=== PATIENT | female | born 1930 | race Caucasian/White ===

== ENCOUNTER 2017-01-07 11:13 | Inpatient (IN) | payer OTHER ==
[~2017-01-07] VITALS: Ht 157.5 cm; Wt 104.0 kg
[~2017-01-07 11:13] MED LIST: ALPRAZOLAM0.25 M2 PO; AMLODIPINE-BEN1 EAC3 PO; AUGMENTIN875 MG PO; Ascorbic Acid,Ester- PO; COLACE100 MG PO; COUMADIN,JANTO2.5 MG PO; CRESTOR40 MG PO; Folvite PO; LEVOTHROID,SYN0.1 MG PO; LOTREL 5/101 CAPSULE PO; Ocean Nasal 0.65% NS; Oyst-Cal D, Oscal W/ PO; PERCOCET 5/31 TABLET PO; PLAVIX75 MG PO; PREDNISONE20 M1 PO; PROTONIX40 MG PO; Robitussin DM PO; SYNTHROID75 MCG PO; THERAGRAN1 TABLET PO; TOPROL XL50 MG PO; TYLENOL EXTRA500 MG PO; ULTRAM50 MG PO; VICODIN,LORT1 TABLET PO; Vicodin,Lortab 5/500 PO; ZETIA10 MG PO
[2017-01-07 12:19] LABS: HEMATOCRIT 32.9 % (36.0-46.0); MCH 28.5 PG (29.0-34.0); MCHC 32.8 G/DL (30.0-36.0); MCV 86.8 FL (83-99); MEAN PLAT.VOLUME 12.8 uM^3 (9.5-12.4); PLATELET COUNT 192 K/uL (156-360); RBC DIS.WIDTH-CV 14.5 % (11.8-14.6); RBC DIS.WIDTH-SD 46.1 % (39-53); RED BLOOD COUNT 3.79 M/uL (3.80-5.20); WHITE BLOOD COUNT 6.2 K/uL (4.1-10.2)
[2017-01-07 12:33] LABS: CHLORIDE 105 mEq/L (99-109); POTASSIUM 5.2 mEq/L (3.7-5.4); SODIUM 137 mEq/L (136-147)
[2017-01-07 12:34] LABS: GLUCOSE 103 mg/dL (70-99)
[2017-01-07 12:36] LABS: ANION GAP 17 MEQ/L (2-14)
[2017-01-07 12:38] LABS: GFR ESTIMATE (CALCULATED) 8 mL/min/
[2017-01-07 12:41] LABS: UREA NITROGEN (BUN) 119 mg/dL (9-23)
[2017-01-07 13:16] LABS: INTER. NORMALIZED RATIO 1.6; PROTHROMBIN TIME 17.7 SEC (10.2-12.9)
[2017-01-07 13:19] LABS: PTT 32.8 SEC (25-37)
[2017-01-07 13:20] LABS: MAGNESIUM 2.1 mg/dL (1.3-2.7)
[2017-01-07 13:24] LABS: TOTAL BILIRUBIN 0.4 mg/dL (0.0-1.0)
[2017-01-07 13:25] LABS: ALKALINE PHOSPHATASE 94 IU/L (3-129)
[2017-01-07 13:27] LABS: DIRECT BILIRUBIN 0.2 mg/dL (0.0-0.3)
[2017-01-07 13:28] LABS: LIPASE 40 U/L (1.0-51.0)
[2017-01-07 14:18] LABS: ADD MIUA? YES; BILIRUBIN NEGATIVE; BLOOD SMALL; COLOR YELLOW ((YELLOW)); GLUCOSE (STRIP) NEGATIVE; KETONES NEGATIVE; LEUKOCYTES LARGE; NITRITE NEGATIVE; PROTEIN (STRIP) 30; SPECIFIC GRAVITY 1.011 (1.000-1.030); UROBILINOGEN 0.2 MG/DL (0.2-1.0)
[2017-01-07 14:28] LABS: BACTERIA RARE /HPF; EPITHELIAL CELLS RARE /HPF; GRANULAR CASTS 0-5 /LPF; HYALINE CASTS 0-5 /LPF; MUCUS TRACE /LPF; RED BLOOD CELLS 0-5 /HPF (0-5); UCUL ADDED? YES; WHITE BLOOD CELLS 20-30 /HPF (0-5)
[2017-01-07] MEDS ORDERED: AZITHROMYCIN250 MG1 PO (16:20)
[2017-01-07] MEDS ORDERED: IPRATROPIUM BRO30 ML BOTH NARES (16:20)
[2017-01-07] MEDS ORDERED: VALIUM2 MG PO (16:21)
[2017-01-07] MEDS ORDERED: NITROSTAT0.4 MG SL (16:21)
[2017-01-07] MEDS ORDERED: AMLODIPINE-VAL1 EACH PO (16:21)
[2017-01-07] MEDS ORDERED: EPIPEN ADU0.3 MG/0.3 IM (16:22)
[2017-01-07] MEDS ORDERED: IMODIUM A-D2 M2 PO (16:22)
[2017-01-07] MEDS ORDERED: FUROSEMIDE20 MG PO (16:22)
[2017-01-07] MEDS ORDERED: ELIQUIS2.5 MG PO (16:22)
[2017-01-07 16:58] VITALS: BP 141/60
[2017-01-07 17:35] LABS: CREATINE KINASE 195 IU/L (1-294); IRON 72 MCG/DL (35-150)
[2017-01-07 20:35] VITALS: BP 121/58
[2017-01-08] VITALS (7 sets, daily range): BP systolic 124–162; BP diastolic 60–72
[2017-01-08 06:26] LABS: CARBON DIOXIDE (BICARBONATE) 23.1 MEQ/L (20-31)
[2017-01-08 06:30] LABS: HEMATOCRIT 25.9 % (36.0-46.0); MCH 28.1 PG (29.0-34.0); MCHC 32.8 G/DL (30.0-36.0); MCV 85.8 FL (83-99); MEAN PLAT.VOLUME 12.3 uM^3 (9.5-12.4); PLATELET COUNT 162 K/uL (156-360); RBC DIS.WIDTH-CV 14.3 % (11.8-14.6); RBC DIS.WIDTH-SD 45.1 % (39-53); WHITE BLOOD COUNT 4.9 K/uL (4.1-10.2)
[2017-01-08 06:36] LABS: RED BLOOD COUNT 3.02 M/uL (3.80-5.20)
[2017-01-08 07:14] LABS: ANION GAP 13 MEQ/L (2-14); CHLORIDE 107 MEQ/L (99-109); GLUCOSE 86 mg/dL (70-99); SAMPLE HEMOLYSIS CHECK 0; SAMPLE ICTERIC CHECK 0; SAMPLE LIPEMIA CHECK 0; SODIUM 140 MEQ/L (136-147); UREA NITROGEN (BUN) 94 mg/dL (9-23)
[2017-01-08 07:16] LABS: GFR ESTIMATE (CALCULATED) 11 mL/min/; POTASSIUM 3.8 MEQ/L (3.7-5.4)
[2017-01-08 08:03] LABS: INTACT PARATHYROID HORMONE 273 pg/mL (10-69)
[2017-01-08 08:20] LABS: URINE TOTAL PROTEIN 75 MG/DL (0-10)
[2017-01-08 08:26] LABS: UR CREATININE CONCENTRATION 86.2 MG/DL
[2017-01-09 06:17] LABS: EOSINOPHIL (%) 3.9 % (0-5); EOSINOPHIL COUNT 0.2 K/uL (0-0.3); HEMATOCRIT 27.9 % (36.0-46.0); IMMATURE GRANULOCYTE (%) 0.3 % (0.0-0.7); INSTRUMENT ABS NEUTROPHIL CT 4.1 K/uL; LYMPHOCYTE COUNT 1.3 K/uL (1.0-2.8); MCH 28.2 PG (29.0-34.0); MCHC 32.6 G/DL (30.0-36.0); MCV 86.4 FL (83-99); MEAN PLAT.VOLUME 12.7 uM^3 (9.5-12.4); MONOCYTE (%) 7.8 % (3-12); MONOCYTE COUNT 0.5 K/uL (0-0.8); NEUTROPHIL (%) 66.7 % (45-76); NEUTROPHIL COUNT 4.1 K/uL (1.8-6.4); PLATELET COUNT 175 K/uL (156-360); RBC DIS.WIDTH-CV 14.4 % (11.8-14.6); RBC DIS.WIDTH-SD 45.2 % (39-53); RED BLOOD COUNT 3.23 M/uL (3.80-5.20); WHITE BLOOD COUNT 6.1 K/uL (4.1-10.2)
[2017-01-09 06:52] LABS: ALKALINE PHOSPHATASE 72 IU/L (3-129); ANION GAP 12 MEQ/L (2-14); CHLORIDE 107 MEQ/L (99-109); GLUCOSE 96 mg/dL (70-99); SAMPLE HEMOLYSIS CHECK 0; SAMPLE ICTERIC CHECK 0; SAMPLE LIPEMIA CHECK 0; SODIUM 141 MEQ/L (136-147); TOTAL BILIRUBIN 0.5 MG/DL (0.0-1.0); UREA NITROGEN (BUN) 72 mg/dL (9-23)
[2017-01-09 06:55] LABS: GFR ESTIMATE (CALCULATED) 15 mL/min/
[2017-01-09 07:30] VITALS: BP 140/62
[2017-01-09 15:51] VITALS: BP 159/70; BP 165/72
[2017-01-09 23:17] VITALS: BP 146/97
[2017-01-10 05:51] LABS: EOSINOPHIL (%) 6.3 % (0-5); EOSINOPHIL COUNT 0.4 K/uL (0-0.3); HEMATOCRIT 26.2 % (36.0-46.0); IMMATURE GRANULOCYTE (%) 0.3 % (0.0-0.7); INSTRUMENT ABS NEUTROPHIL CT 3.7 K/uL; LYMPHOCYTE COUNT 1.1 K/uL (1.0-2.8); MCH 28.2 PG (29.0-34.0); MCHC 32.8 G/DL (30.0-36.0); MCV 85.9 FL (83-99); MEAN PLAT.VOLUME 12.3 uM^3 (9.5-12.4); MONOCYTE (%) 10.2 % (3-12); MONOCYTE COUNT 0.6 K/uL (0-0.8); NEUTROPHIL (%) 64.5 % (45-76); NEUTROPHIL COUNT 3.7 K/uL (1.8-6.4); PLATELET COUNT 158 K/uL (156-360); RBC DIS.WIDTH-CV 14.6 % (11.8-14.6); RBC DIS.WIDTH-SD 45.8 % (39-53); RED BLOOD COUNT 3.05 M/uL (3.80-5.20); WHITE BLOOD COUNT 5.8 K/uL (4.1-10.2)
[2017-01-10 06:55] LABS: ALKALINE PHOSPHATASE 63 IU/L (3-129); ANION GAP 13 MEQ/L (2-14); CHLORIDE 108 MEQ/L (99-109); GFR ESTIMATE (CALCULATED) 18 mL/min/; GLUCOSE 84 mg/dL (70-99); POTASSIUM 4.2 MEQ/L (3.7-5.4); SAMPLE HEMOLYSIS CHECK 0; SAMPLE ICTERIC CHECK 0; SAMPLE LIPEMIA CHECK 0; SODIUM 141 MEQ/L (136-147); TOTAL BILIRUBIN 0.4 MG/DL (0.0-1.0); UREA NITROGEN (BUN) 60 mg/dL (9-23)
[2017-01-10 08:50] VITALS: BP 157/70
[2017-01-10 16:16] VITALS: BP 155/70
[2017-01-11 06:15] LABS: EOSINOPHIL (%) 5.5 % (0-5); EOSINOPHIL COUNT 0.3 K/uL (0-0.3); HEMATOCRIT 27.4 % (36.0-46.0); IMMATURE GRANULOCYTE (%) 0.5 % (0.0-0.7); INSTRUMENT ABS NEUTROPHIL CT 3.4 K/uL; LYMPHOCYTE COUNT 1.4 K/uL (1.0-2.8); MCH 27.7 PG (29.0-34.0); MCHC 31.4 G/DL (30.0-36.0); MCV 88.1 FL (83-99); MEAN PLAT.VOLUME 12.4 uM^3 (9.5-12.4); MONOCYTE COUNT 0.5 K/uL (0-0.8); NEUTROPHIL (%) 60.6 % (45-76); NEUTROPHIL COUNT 3.4 K/uL (1.8-6.4); PLATELET COUNT 157 K/uL (156-360); RBC DIS.WIDTH-CV 14.5 % (11.8-14.6); RBC DIS.WIDTH-SD 45.9 % (39-53); RED BLOOD COUNT 3.11 M/uL (3.80-5.20); WHITE BLOOD COUNT 5.7 K/uL (4.1-10.2)
[2017-01-11 06:54] LABS: ALKALINE PHOSPHATASE 62 IU/L (3-129); ANION GAP 7 MEQ/L (2-14); CHLORIDE 109 MEQ/L (99-109); GFR ESTIMATE (CALCULATED) 20 mL/min/; GLUCOSE 73 mg/dL (70-99); POTASSIUM 4.9 MEQ/L (3.7-5.4); SAMPLE HEMOLYSIS CHECK 0; SAMPLE ICTERIC CHECK 0; SAMPLE LIPEMIA CHECK 0; SODIUM 142 MEQ/L (136-147); UREA NITROGEN (BUN) 44 mg/dL (9-23)
[2017-01-11 06:55] LABS: TOTAL BILIRUBIN 0.5 MG/DL (0.0-1.0)
[2017-01-11 08:02] VITALS: BP 148/74
[2017-01-11 11:46] VITALS: BP 110/66
[2017-01-11] MEDS ORDERED: TAMSULOSIN HCL0.4 MG PO (14:30)
[2017-01-11] MEDS ORDERED: METRONIDAZOLE500 MG PO (14:30)
[2017-01-11] MEDS ORDERED: Tums,OsCal PO (14:31)
[2017-01-11] MEDS ORDERED: CALCITRIOL0.25 MCG PO (14:31)
[2017-01-11] MEDS ORDERED: AMLODIPINE BESYL5 MG PO (14:32)
[2017-01-11] MEDS ORDERED: ERGOCALCIF50000 UNIT PO (14:32)
== END 2017-01-11 15:41 | disposition home health service (06) | DRG 683 ==
LOC: EME 11:13 → 5EAST 13:40 → EDOF 13:40 → ENRESERV 13:42 → CANRESERV 13:42 → ENRESERV 15:03 → 5EAST 16:30
PROVIDERS: Hospitalist; Internal Medicine
DX: N17.9 Acute kidney failure, unspecified (principal); N39.0 Urinary tract infection, site not specified; R04.0 Epistaxis; E87.2 Acidosis; D63.1 Anemia in chronic kidney disease; I13.0 Hypertensive heart and chronic kidney disease with heart failure and stage 1 through stage 4 chronic kidney disease, or unspecified chronic kidney disease; N18.4 Chronic kidney disease, stage 4 (severe); I50.9 Heart failure, unspecified; E87.5 Hyperkalemia; E86.0 Dehydration; E55.9 Vitamin D deficiency, unspecified; I48.0 Paroxysmal atrial fibrillation; N25.81 Secondary hyperparathyroidism of renal origin; Z68.41 Body mass index [BMI] 40.0-44.9, adult; E66.01 Morbid (severe) obesity due to excess calories; I25.2 Old myocardial infarction; K21.9 Gastro-esophageal reflux disease without esophagitis; E78.5 Hyperlipidemia, unspecified; E03.9 Hypothyroidism, unspecified; G43.909 Migraine, unspecified, not intractable, without status migrainosus; K58.0 Irritable bowel syndrome with diarrhea; R32 Unspecified urinary incontinence; F32.9 Major depressive disorder, single episode, unspecified; H91.90 Unspecified hearing loss, unspecified ear; F41.9 Anxiety disorder, unspecified; Z79.01 Long term (current) use of anticoagulants; Z87.891 Personal history of nicotine dependence; Z96.652 Presence of left artificial knee joint; R63.0 Anorexia; R80.9 Proteinuria, unspecified; I44.0 Atrioventricular block, first degree
CPT/HCPCS: 71010; 74176; 76770; 80048; 80053; 80076; 81003; 82306; 82330; 82436; 82550; 82570; 82607; 82746; 82803; 83540; 83690; 83735; 83970; 84100; 84156; 84300; 84443; 84466; 85025; 85027; 85610; 85730; 86334; 86335; 87040; 87086; 87493; 87506; 93005; 99281; 99285; J0610; J0696; J0881; J2405; J7030; J7050; J7120; S0028

== ENCOUNTER 2017-02-20 08:50 | Inpatient (IN) | payer OTHER ==
[~2017-02-20] VITALS: Ht 157.5 cm; Wt 46.3 kg
[2017-02-20] VITALS (9 sets, daily range): BP systolic 95–136; BP diastolic 42–76
[~2017-02-20 08:50] MED LIST changes: +AMLODIPINE BESYL5 MG PO; +AMLODIPINE-VAL1 EACH PO; +AZITHROMYCIN250 MG1 PO; +CALCITRIOL0.25 MCG PO; +ELIQUIS2.5 MG PO; +EPIPEN ADU0.3 MG/0.3 IM; +ERGOCALCIF50000 UNIT PO; +FUROSEMIDE20 MG PO; +IMODIUM A-D2 M2 PO; +IPRATROPIUM BRO30 ML BOTH NARES; +METRONIDAZOLE500 MG PO; +NITROSTAT0.4 MG SL; +TAMSULOSIN HCL0.4 MG PO; +Tums,OsCal PO; +VALIUM2 MG PO
[2017-02-20 09:32] LABS: EOSINOPHIL (%) 2.1 % (0-5); EOSINOPHIL COUNT 0.3 K/uL (0-0.3); HEMATOCRIT 32.4 % (36.0-46.0); IMMATURE GRANULOCYTE (%) 0.5 % (0.0-0.7); IMMATURE GRANULOCYTE COUNT 0.1 K/uL; INSTRUMENT ABS NEUTROPHIL CT 10.7 K/uL; LYMPHOCYTE COUNT 2.3 K/uL (1.0-2.8); MCH 29.2 PG (29.0-34.0); MCHC 31.8 G/DL (30.0-36.0); MCV 91.8 FL (83-99); MEAN PLAT.VOLUME 12.7 uM^3 (9.5-12.4); MONOCYTE (%) 3.9 % (3-12); MONOCYTE COUNT 0.6 K/uL (0-0.8); NEUTROPHIL (%) 76.9 % (45-76); NEUTROPHIL COUNT 10.7 K/uL (1.8-6.4); PLATELET COUNT 155 K/uL (156-360); RBC DIS.WIDTH-CV 15.3 % (11.8-14.6); RBC DIS.WIDTH-SD 51.7 % (39-53); RED BLOOD COUNT 3.53 M/uL (3.80-5.20)
[2017-02-20 09:37] LABS: INTER. NORMALIZED RATIO 1.2; PROTHROMBIN TIME 13.5 SEC (10.2-12.9)
[2017-02-20 09:40] LABS: PTT 21.8 SEC (25-37)
[2017-02-20 09:42] LABS: CHLORIDE 108 mEq/L (99-109); MAGNESIUM 1.9 mg/dL (1.3-2.7); POTASSIUM 4.1 mEq/L (3.7-5.4); SODIUM 140 mEq/L (136-147)
[2017-02-20 09:44] LABS: GLUCOSE 171 mg/dL (70-99)
[2017-02-20 09:45] LABS: ANION GAP 13 MEQ/L (2-14)
[2017-02-20 09:47] LABS: GFR ESTIMATE (CALCULATED) 23 mL/min/
[2017-02-20 09:48] LABS: UREA NITROGEN (BUN) 37 mg/dL (9-23)
[2017-02-20 09:52] LABS: TROP-I INTERPRETATION NEGATIVE; TROPONIN-I 0.04 ng/mL (0.0-0.30)
[2017-02-20 10:11] LABS: BASE EXCESS -2.8 mEq/L (-3 to +3); BICARBONATE 21.8 mEq/L (22-26); CARBOXY HGB 1.8 % (0-5); METHEMOGLOBIN 1.1 % (0-1.5); PCO2 36 mm Hg (35-45); PO2 81 mm Hg (80-100); pH 7.39 (7.35-7.45)
[2017-02-20 10:12] LABS: COMMENTS - BLOOD GASES A+C+; DEVICE 840 PB MASK; FI02 40 %; MODE SPONT NIV; PEEP 6 CM/H20; PRES. SUPPORT 10 CM/H2O; SITE LR; TOTAL RESP RATE 18 resp/min
[2017-02-20] MEDS ORDERED: SUMATRIPTAN5 MG NS (13:37)
[2017-02-20 16:30] LABS: METH RESISTANT S AUREUS PCR NEGATIVE (NEGATIVE)
[2017-02-20 16:32] LABS: PROBE CHECK PASS; SPECIMEN PROCESSING CONTROL PASS
[2017-02-21] VITALS (15 sets, daily range): BP systolic 111–156; BP diastolic 42–70
[2017-02-21 05:10] LABS: CHLORIDE 108 mEq/L (99-109); POTASSIUM 4.4 mEq/L (3.7-5.4); SODIUM 141 mEq/L (136-147)
[2017-02-21 05:13] LABS: ANION GAP 9 MEQ/L (2-14)
[2017-02-21 05:14] LABS: GLUCOSE 85 mg/dL (70-99)
[2017-02-21 05:15] LABS: ALKALINE PHOSPHATASE 68 IU/L (3-129); GFR ESTIMATE (CALCULATED) 23 mL/min/
[2017-02-21 05:17] LABS: HEMATOCRIT 25.9 % (36.0-46.0); MCV 90.6 FL (83-99); MEAN PLAT.VOLUME 13.1 uM^3 (9.5-12.4); PLATELET COUNT 127 K/uL (156-360); RBC DIS.WIDTH-CV 15.2 % (11.8-14.6); RBC DIS.WIDTH-SD 50.4 % (39-53); RED BLOOD COUNT 2.86 M/uL (3.80-5.20); UREA NITROGEN (BUN) 40 mg/dL (9-23); WHITE BLOOD COUNT 6.3 K/uL (4.1-10.2)
[2017-02-22 00:06] VITALS: BP 129/60
[2017-02-22 07:54] VITALS: BP 167/71
[2017-02-22 11:10] VITALS: BP 158/71
[2017-02-22 11:16] LABS: EOSINOPHIL (%) 7.3 % (0-5); EOSINOPHIL COUNT 0.5 K/uL (0-0.3); HEMATOCRIT 30.9 % (36.0-46.0); IMMATURE GRANULOCYTE (%) 0.1 % (0.0-0.7); LYMPHOCYTE COUNT 1.6 K/uL (1.0-2.8); MCH 28.4 PG (29.0-34.0); MCHC 31.7 G/DL (30.0-36.0); MCV 89.6 FL (83-99); MONOCYTE (%) 8.8 % (3-12); MONOCYTE COUNT 0.6 K/uL (0-0.8); NEUTROPHIL (%) 58.9 % (45-76); PLATELET COUNT 160 K/uL (156-360); RBC DIS.WIDTH-CV 14.9 % (11.8-14.6); RBC DIS.WIDTH-SD 49.1 % (39-53); WHITE BLOOD COUNT 6.7 K/uL (4.1-10.2)
[2017-02-22 11:26] LABS: RED BLOOD COUNT 3.45 M/uL (3.80-5.20)
[2017-02-22 11:37] LABS: ANION GAP 12 MEQ/L (2-14); CHLORIDE 101 MEQ/L (99-109); GFR ESTIMATE (CALCULATED) 20 mL/min/; GLUCOSE 95 mg/dL (70-99); POTASSIUM 4.3 MEQ/L (3.7-5.4); SAMPLE HEMOLYSIS CHECK 0; SAMPLE ICTERIC CHECK 0; SAMPLE LIPEMIA CHECK 0; SODIUM 140 MEQ/L (136-147); UREA NITROGEN (BUN) 42 mg/dL (9-23)
[2017-02-22 15:16] VITALS: BP 145/66
[2017-02-22 20:14] VITALS: BP 140/66
[2017-02-22 23:04] VITALS: BP 165/70
[2017-02-23 03:44] VITALS: BP 120/58
[2017-02-23 07:20] LABS: BASOPHIL COUNT 0.1 K/uL (0-0.1); EOSINOPHIL (%) 6.8 % (0-5); EOSINOPHIL COUNT 0.4 K/uL (0-0.3); HEMATOCRIT 29.7 % (36.0-46.0); IMMATURE GRANULOCYTE (%) 0.2 % (0.0-0.7); INSTRUMENT ABS NEUTROPHIL CT 3.5 K/uL; LYMPHOCYTE COUNT 1.6 K/uL (1.0-2.8); MCHC 31.3 G/DL (30.0-36.0); MCV 89.5 FL (83-99); MEAN PLAT.VOLUME 13.3 uM^3 (9.5-12.4); MONOCYTE (%) 9.8 % (3-12); MONOCYTE COUNT 0.6 K/uL (0-0.8); NEUTROPHIL (%) 56.8 % (45-76); NEUTROPHIL COUNT 3.5 K/uL (1.8-6.4); PLATELET COUNT 150 K/uL (156-360); RBC DIS.WIDTH-CV 14.6 % (11.8-14.6); RBC DIS.WIDTH-SD 47.8 % (39-53); RED BLOOD COUNT 3.32 M/uL (3.80-5.20); WHITE BLOOD COUNT 6.2 K/uL (4.1-10.2)
[2017-02-23 07:45] LABS: ANION GAP 12 MEQ/L (2-14); CHLORIDE 101 MEQ/L (99-109); GFR ESTIMATE (CALCULATED) 21 mL/min/; GLUCOSE 80 mg/dL (70-99); POTASSIUM 4.1 MEQ/L (3.7-5.4); SAMPLE HEMOLYSIS CHECK 0; SAMPLE ICTERIC CHECK 0; SAMPLE LIPEMIA CHECK 0; SODIUM 141 MEQ/L (136-147); UREA NITROGEN (BUN) 43 mg/dL (9-23)
[2017-02-23 08:40] VITALS: BP 133/65
[2017-02-23 11:11] VITALS: BP 137/62
[2017-02-23] MEDS ORDERED: FUROSEMIDE40 MG PO (11:32)
== END 2017-02-23 14:18 | disposition home health service (06) | DRG 189 ==
LOC: EME 08:50 → ENRESERV 12:26 → 4WEST 12:26 → EDOF 12:26 → ENRESERV 13:11 → 4WEST 14:28 → ENRESERV 02-21 15:02 → 3EAST 02-21 16:00
PROVIDERS: Emergency Medicine; Family Medicine; Internal Medicine
PROC: 5A09357 Assistance with Respiratory Ventilation, Less than 24 Consecutive Hours, Continuous Positive Airway Pressure (ICD-10-PCS; principal; 2017-02-20)
DX: J81.0 Acute pulmonary edema (principal); I13.0 Hypertensive heart and chronic kidney disease with heart failure and stage 1 through stage 4 chronic kidney disease, or unspecified chronic kidney disease; N18.4 Chronic kidney disease, stage 4 (severe); Z68.1 Body mass index [BMI] 19.9 or less, adult; J90 Pleural effusion, not elsewhere classified; F33.9 Major depressive disorder, recurrent, unspecified; R09.02 Hypoxemia; K21.9 Gastro-esophageal reflux disease without esophagitis; J44.9 Chronic obstructive pulmonary disease, unspecified; I50.9 Heart failure, unspecified; I27.20 Pulmonary hypertension, unspecified; I35.0 Nonrheumatic aortic (valve) stenosis; E78.5 Hyperlipidemia, unspecified; E03.9 Hypothyroidism, unspecified; D63.1 Anemia in chronic kidney disease; I48.2 Chronic atrial fibrillation; H91.90 Unspecified hearing loss, unspecified ear; F41.9 Anxiety disorder, unspecified; G43.909 Migraine, unspecified, not intractable, without status migrainosus; Z96.652 Presence of left artificial knee joint; R06.03 Acute respiratory distress; Z90.710 Acquired absence of both cervix and uterus; Z90.49 Acquired absence of other specified parts of digestive tract; Z87.891 Personal history of nicotine dependence; Z88.5 Allergy status to narcotic agent; Z88.6 Allergy status to analgesic agent; I25.2 Old myocardial infarction; Z79.01 Long term (current) use of anticoagulants; Z84.1 Family history of disorders of kidney and ureter; Z82.0 Family history of epilepsy and other diseases of the nervous system
CPT/HCPCS: 36600; 71010; 71020; 73700; 80048; 80053; 82803; 83605; 83735; 83880; 84484; 85025; 85027; 85610; 85730; 87641; 93005; 93971; 94002; 94640; 94760; 94799; 99202; 99281; 99285; J1644; J1940; J2405; J7644

== ENCOUNTER 2017-04-25 19:17 | Emergency (ER) | payer OTHER ==
[~2017-04-25] VITALS: Ht 157.5 cm; Wt 47.2 kg
[~2017-04-25 19:17] MED LIST changes: +FUROSEMIDE40 MG PO; +SUMATRIPTAN5 MG NS
[2017-04-25 20:16] LABS: HEMATOCRIT 27.8 % (36.0-46.0); HEMOGLOBIN 9.1 G/DL (11.9-15.5); MCH 29.4 PG (29.0-34.0); MCHC 32.7 G/DL (30.0-36.0); MCV 89.7 FL (83-99); PLATELET COUNT 162 K/uL (156-360); RBC DIS.WIDTH-CV 13.8 % (11.8-14.6); RBC DIS.WIDTH-SD 44.8 % (39-53)
[2017-04-25 20:31] LABS: CHLORIDE 104 mEq/L (99-109); POTASSIUM 4.4 mEq/L (3.7-5.4); SODIUM 138 mEq/L (136-147)
[2017-04-25 20:33] LABS: GLUCOSE 99 mg/dL (70-99)
[2017-04-25 20:37] LABS: CREATININE 3.6 mg/dL (0.6-1.3); GFR ESTIMATE (CALCULATED) 13 mL/min/
[2017-04-25 20:38] LABS: UREA NITROGEN (BUN) 48 mg/dL (9-23)
[2017-04-25 20:39] LABS: TROP-I INTERPRETATION NEGATIVE; TROPONIN-I 0.03 ng/mL (0.0-0.30)
[2017-04-25 23:15] LABS: TROP-I INTERPRETATION NEGATIVE; TROPONIN-I 0.02 ng/mL (0.0-0.30)
[2017-04-26] MEDS ORDERED: DUONEB 2.5-0.5 M3 ML AEROSOL (01:15)
[2017-04-26 02:41] VITALS: BP 117/64
== END 2017-04-26 02:47 | disposition home or self-care (01) ==
LOC: EME 19:17
PROVIDERS: Emergency Medicine
DX: J44.1 Chronic obstructive pulmonary disease with (acute) exacerbation (principal); J84.10 Pulmonary fibrosis, unspecified; K21.9 Gastro-esophageal reflux disease without esophagitis; I10 Essential (primary) hypertension; E03.9 Hypothyroidism, unspecified; E78.5 Hyperlipidemia, unspecified; F41.9 Anxiety disorder, unspecified; F32.9 Major depressive disorder, single episode, unspecified; I25.2 Old myocardial infarction; Z95.5 Presence of coronary angioplasty implant and graft; Z87.891 Personal history of nicotine dependence; Z90.49 Acquired absence of other specified parts of digestive tract; Z88.5 Allergy status to narcotic agent; Z88.6 Allergy status to analgesic agent
CPT/HCPCS: 71046; 80048; 84484; 85027; 93005; 94640; 99281; 99285; J1100; J1940

== ENCOUNTER 2017-05-29 14:51 | Inpatient (IN) | payer OTHER ==
[~2017-05-29] VITALS: Ht 152.4 cm; Wt 47.5 kg
[~2017-05-29 14:51] MED LIST changes: +DUONEB 2.5-0.5 M3 ML AEROSOL
[2017-05-29 15:13] LABS: HEMATOCRIT 28.2 % (36.0-46.0); HEMOGLOBIN 9.5 G/DL (11.9-15.5); MCH 29.7 PG (29.0-34.0); MCHC 33.7 G/DL (30.0-36.0); MCV 88.1 FL (83-99); PLATELET COUNT 146 K/uL (156-360); RBC DIS.WIDTH-CV 14.7 % (11.8-14.6); RBC DIS.WIDTH-SD 47.7 % (39-53); WHITE BLOOD COUNT 9.4 K/uL (4.1-10.2)
[2017-05-29 15:22] LABS: CHLORIDE 108 mEq/L (99-109); POTASSIUM 4.6 mEq/L (3.7-5.4); SODIUM 138 mEq/L (136-147)
[2017-05-29 15:23] LABS: GLUCOSE 143 mg/dL (70-99)
[2017-05-29 15:27] LABS: CREATININE 3.2 mg/dL (0.6-1.3); GFR ESTIMATE (CALCULATED) 15 mL/min/
[2017-05-29 15:28] LABS: UREA NITROGEN (BUN) 61 mg/dL (9-23)
[2017-05-29 15:35] LABS: TROP-I INTERPRETATION NEGATIVE; TROPONIN-I 0.05 ng/mL (0.0-0.30)
[2017-05-29] MEDS ORDERED: VENTOLIN HFA18 GM IH (18:19)
[2017-05-29] MEDS ORDERED: NORVASC5 MG PO (18:20)
[2017-05-29] MEDS ORDERED: FUROSEMIDE20 MG PO ×2 (18:20→18:21)
[2017-05-29] MEDS ORDERED: ARICEPT5 MG PO (18:21)
[2017-05-29] MEDS ORDERED: FLOMAX0.4 MG PO (18:21)
[2017-05-29] MEDS ORDERED: VITAMIN D31000 UNIT PO (18:21)
[2017-05-29] MEDS ORDERED: ZOLMITRIPTAN O2.5 MG PO (18:22)
[2017-05-29] MEDS ORDERED: BACTRIM,SEPT1 TABLET PO (18:22)
[2017-05-29] MEDS ORDERED: PREDNISONE20 MG PO (18:23)
[2017-05-29] MEDS ORDERED: DELTASONE20 M1 PO (18:24)
[2017-05-29 20:27] VITALS: BP 135/63
[2017-05-29 20:30] VITALS: BP 136/63
[2017-05-29 23:46] VITALS: BP 136/63
[2017-05-30 04:02] VITALS: BP 132/58
[2017-05-30 05:24] LABS: HEMATOCRIT 24.1 % (36.0-46.0); HEMOGLOBIN 7.8 G/DL (11.9-15.5); MCH 28.7 PG (29.0-34.0); MCHC 32.4 G/DL (30.0-36.0); MCV 88.6 FL (83-99); PLATELET COUNT 112 K/uL (156-360); RBC DIS.WIDTH-CV 14.9 % (11.8-14.6); RBC DIS.WIDTH-SD 47.8 % (39-53); RED BLOOD COUNT 2.72 M/uL (3.80-5.20); WHITE BLOOD COUNT 3.3 K/uL (4.1-10.2)
[2017-05-30 05:52] LABS: CHLORIDE 103 MEQ/L (99-109); CREATININE 3.2 MG/DL (0.6-1.3); GFR ESTIMATE (CALCULATED) 15 mL/min/; GLUCOSE 156 mg/dL (70-99); POTASSIUM 4.1 MEQ/L (3.7-5.4); SODIUM 136 MEQ/L (136-147); UREA NITROGEN (BUN) 66 mg/dL (9-23)
[2017-05-30 08:30] VITALS: BP 135/63
[2017-05-30 12:29] VITALS: BP 141/65
[2017-05-30 15:54] VITALS: BP 141/60
[2017-05-30 23:20] VITALS: BP 135/62
[2017-05-31 07:09] LABS: HEMOGLOBIN 8.3 G/DL (11.9-15.5); MCH 28.3 PG (29.0-34.0); MCHC 31.9 G/DL (30.0-36.0); MCV 88.7 FL (83-99); PLATELET COUNT 143 K/uL (156-360); RBC DIS.WIDTH-SD 48.6 % (39-53); RED BLOOD COUNT 2.93 M/uL (3.80-5.20); WHITE BLOOD COUNT 9.1 K/uL (4.1-10.2)
[2017-05-31 07:10] VITALS: BP 136/60
[2017-05-31 07:43] LABS: CHLORIDE 104 MEQ/L (99-109); CREATININE 3.6 MG/DL (0.6-1.3); GFR ESTIMATE (CALCULATED) 13 mL/min/; GLUCOSE 132 mg/dL (70-99); SODIUM 137 MEQ/L (136-147); UREA NITROGEN (BUN) 76 mg/dL (9-23)
[2017-05-31 15:56] VITALS: BP 104/51
[2017-05-31 23:25] VITALS: BP 137/63
[2017-06-01 06:04] LABS: BASOPHIL (%) 0.2 % (0-1); EOSINOPHIL (%) 0 % (0-5); HEMATOCRIT 24.3 % (36.0-46.0); HEMOGLOBIN 7.9 G/DL (11.9-15.5); IMMATURE GRANULOCYTE (%) 1.3 % (0.0-0.7); LYMPHOCYTE (%) 6.4 % (15-42); LYMPHOCYTE COUNT 0.4 K/uL (1.0-2.8); MCH 28.9 PG (29.0-34.0); MCHC 32.5 G/DL (30.0-36.0); MONOCYTE (%) 2.5 % (3-12); MONOCYTE COUNT 0.2 K/uL (0-0.8); NEUTROPHIL (%) 89.6 % (45-76); NEUTROPHIL COUNT 5.5 K/uL (1.8-6.4); PLATELET COUNT 122 K/uL (156-360); RBC DIS.WIDTH-CV 15.3 % (11.8-14.6); RED BLOOD COUNT 2.73 M/uL (3.80-5.20); WHITE BLOOD COUNT 6.1 K/uL (4.1-10.2)
[2017-06-01 07:19] VITALS: BP 140/63
[2017-06-01 07:23] LABS: CHLORIDE 103 MEQ/L (99-109); CREATININE 3.5 MG/DL (0.6-1.3); GFR ESTIMATE (CALCULATED) 13 mL/min/; GLUCOSE 142 mg/dL (70-99); POTASSIUM 4.3 MEQ/L (3.7-5.4); SODIUM 136 MEQ/L (136-147); UREA NITROGEN (BUN) 79 mg/dL (9-23)
[2017-06-01] MEDS ORDERED: ABILIFY5 MG PO (14:39)
[2017-06-01] MEDS ORDERED: PREDNISONE20 MG PO (14:40)
== END 2017-06-01 15:43 | disposition home or self-care (01) | DRG 191 ==
LOC: EME 14:51 → EDOF 18:19 → 3EAST 18:19 → ENRESERV 18:20 → 3EAST 20:06
PROVIDERS: Emergency Medicine Emergency Medical Services; Family Medicine
DX: J44.1 Chronic obstructive pulmonary disease with (acute) exacerbation (principal); R09.02 Hypoxemia; I48.2 Chronic atrial fibrillation; N18.4 Chronic kidney disease, stage 4 (severe); Z95.5 Presence of coronary angioplasty implant and graft; E03.9 Hypothyroidism, unspecified; L03.115 Cellulitis of right lower limb; I50.22 Chronic systolic (congestive) heart failure; I13.0 Hypertensive heart and chronic kidney disease with heart failure and stage 1 through stage 4 chronic kidney disease, or unspecified chronic kidney disease; D64.9 Anemia, unspecified; F03.90 Unspecified dementia, unspecified severity, without behavioral disturbance, psychotic disturbance, mood disturbance, and anxiety; E55.9 Vitamin D deficiency, unspecified; E78.5 Hyperlipidemia, unspecified; H91.90 Unspecified hearing loss, unspecified ear; D05.11 Intraductal carcinoma in situ of right breast; Z90.49 Acquired absence of other specified parts of digestive tract; Z90.710 Acquired absence of both cervix and uterus; Z79.01 Long term (current) use of anticoagulants; Z79.899 Other long term (current) drug therapy; I25.10 Atherosclerotic heart disease of native coronary artery without angina pectoris; Z79.82 Long term (current) use of aspirin
CPT/HCPCS: 71045; 71250; 74176; 80048; 83880; 84484; 85025; 85027; 85379; 93005; 94640; 94640 76; 94644; 94760; 94799; 99202; 99281; 99285; J1100; J1940; J2930

== ENCOUNTER 2017-07-02 19:22 | Inpatient (IN) | payer OTHER ==
[~2017-07-02] VITALS: Ht 152.4 cm; Wt 61.9 kg
[~2017-07-02 19:22] MED LIST changes: +ABILIFY5 MG PO; +ARICEPT5 MG PO; +BACTRIM,SEPT1 TABLET PO; +DELTASONE20 M1 PO; +FLOMAX0.4 MG PO; +NORVASC5 MG PO; +PREDNISONE20 MG PO; +VENTOLIN HFA18 GM IH; +VITAMIN D31000 UNIT PO; +ZOLMITRIPTAN O2.5 MG PO
[2017-07-02 20:11] LABS: HEMATOCRIT 28.8 % (36.0-46.0); HEMOGLOBIN 9.6 G/DL (11.9-15.5); MCH 29.6 PG (29.0-34.0); MCHC 33.3 G/DL (30.0-36.0); MCV 88.9 FL (83-99); PLATELET COUNT 150 K/uL (156-360); RBC DIS.WIDTH-CV 15.7 % (11.8-14.6); RBC DIS.WIDTH-SD 50.8 % (39-53); RED BLOOD COUNT 3.24 M/uL (3.80-5.20); WHITE BLOOD COUNT 9.3 K/uL (4.1-10.2)
[2017-07-02 20:24] LABS: CHLORIDE 104 mEq/L (99-109); SODIUM 141 mEq/L (136-147)
[2017-07-02 20:26] LABS: TOTAL PROTEIN 6.7 g/dL (6.4-8.3)
[2017-07-02 20:28] LABS: GLUCOSE 237 mg/dL (70-99); TOTAL BILIRUBIN 1.1 mg/dL (0.0-1.0)
[2017-07-02 20:30] LABS: ALKALINE PHOSPHATASE 157 IU/L (3-129); CREATININE 2.8 mg/dL (0.6-1.3); GFR ESTIMATE (CALCULATED) 17 mL/min/
[2017-07-02 20:31] LABS: UREA NITROGEN (BUN) 73 mg/dL (9-23)
[2017-07-02 20:32] LABS: AST (GOT) 41 IU/L (2-34)
[2017-07-02 20:33] LABS: ALT (GPT) 58 IU/L (3-49)
[2017-07-02 20:34] LABS: TROP-I INTERPRETATION NEGATIVE; TROPONIN-I 0.05 ng/mL (0.0-0.30)
[2017-07-02 21:00] LABS: LIPASE 31 U/L (1.0-51.0)
[2017-07-02] MEDS ORDERED: ARIPIPRAZOLE5 MG PO (22:06)
[2017-07-02] MEDS ORDERED: DUONEB 2.5-0.5 M3 ML AEROSOL (22:07)
[2017-07-03 06:07] VITALS: BP 125/58
[2017-07-03 06:14] LABS: BASOPHIL (%) 0.1 % (0-1); EOSINOPHIL (%) 0 % (0-5); HEMATOCRIT 24.4 % (36.0-46.0); HEMOGLOBIN 7.7 G/DL (11.9-15.5); IMMATURE GRANULOCYTE (%) 0.4 % (0.0-0.7); LYMPHOCYTE (%) 2.2 % (15-42); LYMPHOCYTE COUNT 0.4 K/uL (1.0-2.8); MCH 28.8 PG (29.0-34.0); MCHC 31.6 G/DL (30.0-36.0); MCV 91.4 FL (83-99); MONOCYTE (%) 5.4 % (3-12); NEUTROPHIL (%) 91.9 % (45-76); NEUTROPHIL COUNT 17.4 K/uL (1.8-6.4); PLATELET COUNT 128 K/uL (156-360); RBC DIS.WIDTH-SD 52.9 % (39-53); RED BLOOD COUNT 2.67 M/uL (3.80-5.20); WHITE BLOOD COUNT 18.9 K/uL (4.1-10.2)
[2017-07-03 06:28] LABS: CHLORIDE 105 MEQ/L (99-109); CREATININE 2.5 MG/DL (0.6-1.3); GFR ESTIMATE (CALCULATED) 20 mL/min/; GLUCOSE 202 mg/dL (70-99); SODIUM 139 MEQ/L (136-147); UREA NITROGEN (BUN) 63 mg/dL (9-23)
[2017-07-03 07:00] VITALS: BP 120/59
[2017-07-03 12:21] VITALS: BP 125/57
[2017-07-03 16:12] VITALS: BP 133/60
[2017-07-03 19:56] VITALS: BP 118/71
[2017-07-03 23:57] VITALS: BP 120/56
[2017-07-04] VITALS (14 sets, daily range): BP systolic 118–150; BP diastolic 55–76
[2017-07-04 06:10] LABS: HEMATOCRIT 21.8 % (36.0-46.0); MCH 29.2 PG (29.0-34.0); MCHC 31.7 G/DL (30.0-36.0); MCV 92.4 FL (83-99); PLATELET COUNT 107 K/uL (156-360); RBC DIS.WIDTH-CV 16.3 % (11.8-14.6); RED BLOOD COUNT 2.36 M/uL (3.80-5.20); WHITE BLOOD COUNT 21.4 K/uL (4.1-10.2)
[2017-07-04 06:17] LABS: HEMOGLOBIN 6.9 G/DL (11.9-15.5)
[2017-07-04 06:24] LABS: CHLORIDE 105 MEQ/L (99-109); GFR ESTIMATE (CALCULATED) 16 mL/min/; POTASSIUM 3.9 MEQ/L (3.7-5.4); SODIUM 138 MEQ/L (136-147); UREA NITROGEN (BUN) 69 mg/dL (9-23)
[2017-07-04 06:33] LABS: GLUCOSE 103 mg/dL (70-99)
[2017-07-04 06:56] LABS: BASOPHIL (%) 0.1 % (0-1); EOSINOPHIL (%) 0 % (0-5); HEMATOLOGY COMMENT 1 SMEAR COMPATIBLE; IMMATURE GRANULOCYTE (%) 0.7 % (0.0-0.7); LYMPHOCYTE (%) 2.4 % (15-42); LYMPHOCYTE COUNT 0.5 K/uL (1.0-2.8); MONOCYTE (%) 3.1 % (3-12); MONOCYTE COUNT 0.7 K/uL (0-0.8); NEUTROPHIL (%) 93.7 % (45-76); NEUTROPHIL COUNT 20.1 K/uL (1.8-6.4)
[2017-07-04 22:18] LABS: APPEARANCE CLEAR ((CLEAR)); BILIRUBIN NEGATIVE; BLOOD SMALL; COLOR YELLOW ((YELLOW)); GLUCOSE (STRIP) NEGATIVE; KETONES NEGATIVE; LEUKOCYTES NEGATIVE; NITRITE NEGATIVE; PROTEIN (STRIP) 30; SPECIFIC GRAVITY 1.009 (1.000-1.030); UROBILINOGEN 0.2 MG/DL (0.2-1.0)
[2017-07-04 22:24] LABS: BACTERIA RARE /HPF; EPITHELIAL CELLS NONE SEEN /HPF; MUCUS TRACE /LPF; RED BLOOD CELLS 0-5 /HPF (0-5); WHITE BLOOD CELLS 0-5 /HPF (0-5)
[2017-07-05 05:44] VITALS: BP 122/58
[2017-07-05 06:03] LABS: HEMATOCRIT 31.2 % (36.0-46.0); MCH 28.2 PG (29.0-34.0); MCHC 32.1 G/DL (30.0-36.0); PLATELET COUNT 92 K/uL (156-360); RBC DIS.WIDTH-CV 16.4 % (11.8-14.6); RBC DIS.WIDTH-SD 53.4 % (39-53); WHITE BLOOD COUNT 24.2 K/uL (4.1-10.2)
[2017-07-05 06:14] LABS: MCV 88.1 FL (83-99); RED BLOOD COUNT 3.54 M/uL (3.80-5.20)
[2017-07-05 06:31] LABS: ANISOCYTOSIS 1+; BASOPHIL (%) 0.2 % (0-1); BURR CELLS 1+; EOSINOPHIL (%) 0 % (0-5); IMMATURE GRANULOCYTE (%) 1.2 % (0.0-0.7); LYMPHOCYTE (%) 1.6 % (15-42); LYMPHOCYTE COUNT 0.4 K/uL (1.0-2.8); MICROCYTOSIS 1+; MONOCYTE (%) 2.7 % (3-12); MONOCYTE COUNT 0.7 K/uL (0-0.8); NEUTROPHIL (%) 94.3 % (45-76); NEUTROPHIL COUNT 22.9 K/uL (1.8-6.4)
[2017-07-05 06:34] LABS: CHLORIDE 104 MEQ/L (99-109); GFR ESTIMATE (CALCULATED) 13 mL/min/; GLUCOSE 107 mg/dL (70-99); POTASSIUM 3.6 MEQ/L (3.7-5.4); SODIUM 140 MEQ/L (136-147); UREA NITROGEN (BUN) 71 mg/dL (9-23)
[2017-07-05 06:35] LABS: CREATININE 3.6 MG/DL (0.6-1.3)
[2017-07-05 07:15] VITALS: BP 127/63
[2017-07-05 08:50] LABS: ALBUMIN 2.5 G/DL (3.2-4.8); MAGNESIUM 1.9 mg/dl (1.3-2.7)
[2017-07-05 10:58] VITALS: BP 108/54
[2017-07-05 15:05] VITALS: BP 106/68
[2017-07-05 20:51] VITALS: BP 126/76
[2017-07-06 00:37] VITALS: BP 119/71
[2017-07-06 04:53] VITALS: BP 136/96
[2017-07-06 06:47] LABS: ALBUMIN 2.5 G/DL (3.2-4.8); CHLORIDE 105 MEQ/L (99-109); PHOSPHORUS 5.9 mg/dL (2.5-4.9); POTASSIUM 3.3 MEQ/L (3.7-5.4); SODIUM 140 MEQ/L (136-147); UREA NITROGEN (BUN) 71 mg/dL (9-23)
[2017-07-06 06:48] LABS: CREATININE 4.3 MG/DL (0.6-1.3); GFR ESTIMATE (CALCULATED) 10 mL/min/; GLUCOSE 60 mg/dL (70-99)
[2017-07-06 07:43] VITALS: BP 93/52
[2017-07-06 08:30] LABS: INTACT PARATHYROID HORMONE 491 pg/mL (10-69)
[2017-07-06 10:26] VITALS: BP 94/68
[2017-07-06 17:17] LABS: HEMOGLOBIN 11.8 G/DL (11.9-15.5); MCV 88.7 FL (83-99)
[2017-07-06 19:00] VITALS: BP 98/64
[2017-07-06 20:00] VITALS: BP 103/67
[2017-07-06 20:11] LABS: INTER. NORMALIZED RATIO 1.6
[2017-07-06 20:14] LABS: PTT 26.9 SEC (25-37)
[2017-07-06 20:27] LABS: ALBUMIN 2.4 G/DL (3.2-4.8); ALKALINE PHOSPHATASE 126 IU/L (3-129); ALT (GPT) 22 IU/L (3-49); CHLORIDE 109 MEQ/L (99-109); CREATININE 4.1 MG/DL (0.6-1.3); GFR ESTIMATE (CALCULATED) 11 mL/min/; GLUCOSE 62 mg/dL (70-99); MAGNESIUM 1.7 mg/dl (1.3-2.7); PHOSPHORUS 6.8 mg/dL (2.5-4.9); SODIUM 137 MEQ/L (136-147); UREA NITROGEN (BUN) 74 mg/dL (9-23)
[2017-07-06 20:28] LABS: POTASSIUM 4.1 MEQ/L (3.7-5.4); TOTAL BILIRUBIN 0.6 MG/DL (0.0-1.0); TOTAL PROTEIN 4.4 G/DL (6.4-8.3)
[2017-07-06 20:29] LABS: AST (GOT) 30 IU/L (2-34)
[2017-07-06 20:43] LABS: BASE EXCESS -12.6 mEq/L (-3 to +3); BICARBONATE 12.9 mEq/L (22-26); CARBOXY HGB 0.9 % (0-5); METHEMOGLOBIN 1.7 % (0-1.5); PO2 462 mm Hg (80-100)
[2017-07-06 20:44] LABS: COMMENTS - BLOOD GASES C+; DEVICE VENT; FI02 100 %; MECHANICAL RATE 12 resp/min; MODE A/C; PCO2 28 mm Hg (35-45); PEEP 5 CM/H20; SITE LF ALINE; TIDAL VOLUME 450 ML; TOTAL RESP RATE 19 resp/min; pH 7.27 (7.35-7.45)
[2017-07-06 22:22] LABS: BASE EXCESS -8.6 mEq/L (-3 to +3); BICARBONATE 14.6 mEq/L (22-26); CARBOXY HGB 0.8 % (0-5); COMMENTS - BLOOD GASES C; DEVICE VENT; FI02 40 %; MECHANICAL RATE 19 resp/min; METHEMOGLOBIN 1.8 % (0-1.5); MODE AC; PCO2 23 mm Hg (35-45); PO2 161 mm Hg (80-100); SITE LF ALINE; TOTAL RESP RATE 19 resp/min; pH 7.41 (7.35-7.45)
[2017-07-06 22:23] LABS: PEEP 5 CM/H20; TIDAL VOLUME 450 ML
[2017-07-07 05:29] LABS: HEMATOCRIT 28.9 % (36.0-46.0); HEMOGLOBIN 9.7 G/DL (11.9-15.5); MCHC 33.6 G/DL (30.0-36.0); MCV 86.5 FL (83-99); PLATELET COUNT 96 K/uL (156-360); RBC DIS.WIDTH-CV 16.3 % (11.8-14.6); RBC DIS.WIDTH-SD 51.6 % (39-53); RED BLOOD COUNT 3.34 M/uL (3.80-5.20); WHITE BLOOD COUNT 13.3 K/uL (4.1-10.2)
[2017-07-07 05:58] LABS: ALBUMIN 1.9 G/DL (3.2-4.8); CHLORIDE 113 MEQ/L (99-109); CREATININE 4.2 MG/DL (0.6-1.3); GFR ESTIMATE (CALCULATED) 11 mL/min/; MAGNESIUM 1.6 mg/dl (1.3-2.7); PHOSPHORUS 5.6 mg/dL (2.5-4.9); POTASSIUM 3.7 MEQ/L (3.7-5.4); SODIUM 142 MEQ/L (136-147); UREA NITROGEN (BUN) 73 mg/dL (9-23)
[2017-07-07 06:03] LABS: GLUCOSE 93 mg/dL (70-99)
[2017-07-07 07:17] LABS: BASE EXCESS -8.1 mEq/L (-3 to +3); BICARBONATE 14.9 mEq/L (22-26); CARBOXY HGB 1.2 % (0-5); METHEMOGLOBIN 1.5 % (0-1.5); PCO2 23 mm Hg (35-45); PO2 124 mm Hg (80-100); pH 7.42 (7.35-7.45)
[2017-07-07 07:18] LABS: COMMENTS - BLOOD GASES C+; DEVICE VENT; FI02 30 %; MECHANICAL RATE 19 resp/min; MODE A/C; PEEP 5 CM/H20; SITE ALINE; TIDAL VOLUME 450 ML; TOTAL RESP RATE 19 resp/min
[2017-07-07 16:00] VITALS: BP 104/52
[2017-07-07 17:00] VITALS: BP 125/61
[2017-07-07 21:27] VITALS: BP 107/62
[2017-07-08] VITALS (9 sets, daily range): BP systolic 102–132; BP diastolic 47–81
[2017-07-08 04:45] LABS: HEMATOCRIT 26.1 % (36.0-46.0); HEMOGLOBIN 8.7 G/DL (11.9-15.5); MCH 28.7 PG (29.0-34.0); MCHC 33.3 G/DL (30.0-36.0); MCV 86.1 FL (83-99); NRBC (%) 0.1 /100 WBC (0-0); PLATELET COUNT 72 K/uL (156-360); RBC DIS.WIDTH-CV 16.4 % (11.8-14.6); RBC DIS.WIDTH-SD 51.7 % (39-53); RED BLOOD COUNT 3.03 M/uL (3.80-5.20); WHITE BLOOD COUNT 16.3 K/uL (4.1-10.2)
[2017-07-08 04:54] LABS: CHLORIDE 110 mEq/L (99-109); POTASSIUM 3.7 mEq/L (3.7-5.4)
[2017-07-08 04:55] LABS: ALBUMIN 1.9 g/dL (3.2-4.8); MAGNESIUM 1.7 mg/dL (1.3-2.7); SODIUM 139 mEq/L (136-147)
[2017-07-08 05:01] LABS: CREATININE 4.2 mg/dL (0.6-1.3); GFR ESTIMATE (CALCULATED) 11 mL/min/; PHOSPHORUS 5.2 mg/dL (2.5-4.9)
[2017-07-08 05:02] LABS: AST (GOT) 42 IU/L (2-34); UREA NITROGEN (BUN) 79 mg/dL (9-23)
[2017-07-08 05:03] LABS: DIRECT BILIRUBIN 0.2 mg/dL (0.0-0.3)
[2017-07-08 05:04] LABS: ALT (GPT) 20 IU/L (3-49)
[2017-07-08 05:16] LABS: ALKALINE PHOSPHATASE 80 IU/L (3-129); GLUCOSE 264 mg/dL (70-99); TOTAL BILIRUBIN 0.3 mg/dL (0.0-1.0); TOTAL PROTEIN 3.7 g/dL (6.4-8.3)
[2017-07-08 05:55] LABS: ANISOCYTOSIS 1+; BASOPHIL (%) 0.1 % (0-1); BURR CELLS 2+; EOSINOPHIL (%) 0 % (0-5); IMMATURE GRANULOCYTE (%) 0.9 % (0.0-0.7); LYMPHOCYTE (%) 1.7 % (15-42); LYMPHOCYTE COUNT 0.3 K/uL (1.0-2.8); MICROCYTOSIS 1+; MONOCYTE (%) 2.5 % (3-12); MONOCYTE COUNT 0.4 K/uL (0-0.8); NEUTROPHIL (%) 94.8 % (45-76); NEUTROPHIL COUNT 15.4 K/uL (1.8-6.4); OVALOCYTES 1+; PLAT.SUFFICIENCY VERY DECREASED; POIKILOCYTOSIS 3+; POLYCHROMASIA 3+; TEAR DROP CELLS 1+
[2017-07-08 05:58] LABS: TRIGLYCERIDES 107 MG/DL (Normal: <150)
[2017-07-08 07:06] LABS: PREALBUMIN < 3.0 mg/dL (10-40)
[2017-07-08 09:22] LABS: BASE EXCESS -5.4 mEq/L (-3 to +3); BICARBONATE 18.2 mEq/L (22-26); METHEMOGLOBIN 1.8 % (0-1.5); PCO2 28 mm Hg (35-45); PO2 101 mm Hg (80-100); pH 7.42 (7.35-7.45)
[2017-07-08 09:23] LABS: COMMENTS - BLOOD GASES C+; DEVICE VENT; FI02 30 %; MECHANICAL RATE 19 resp/min; MODE AC; PEEP 5 CM/H20; SITE LF ALINE; TIDAL VOLUME 450 ML; TOTAL RESP RATE 19 resp/min
[2017-07-08 10:23] LABS: HEPATITIS B SURFACE ANTIGEN Nonreactive; HEPATITIS C ANTIBODY Nonreactive
[2017-07-08 10:24] LABS: ANTI-HEPATITIS B CORE (TOTAL) Nonreactive; HEPATITIS B SURFACE ANTIBODY Nonreactive
[2017-07-09 00:02] VITALS: BP 116/71
[2017-07-09 04:01] VITALS: BP 138/85
[2017-07-09 06:15] LABS: CHLORIDE 99 MEQ/L (99-109); GFR ESTIMATE (CALCULATED) 16 mL/min/; GLUCOSE 160 mg/dL (70-99); MAGNESIUM 2.2 mg/dl (1.3-2.7); PHOSPHORUS 2.9 mg/dL (2.5-4.9); POTASSIUM 3.7 MEQ/L (3.7-5.4); SODIUM 137 MEQ/L (136-147); UREA NITROGEN (BUN) 54 mg/dL (9-23)
[2017-07-09 09:15] LABS: BASOPHIL (%) 0.2 % (0-1); EOSINOPHIL (%) 0.8 % (0-5); EOSINOPHIL COUNT 0.1 K/uL (0-0.3); HEMATOCRIT 27.3 % (36.0-46.0); HEMOGLOBIN 9.2 G/DL (11.9-15.5); IMMATURE GRANULOCYTE (%) 1.1 % (0.0-0.7); LYMPHOCYTE (%) 4.6 % (15-42); LYMPHOCYTE COUNT 0.9 K/uL (1.0-2.8); MCHC 33.7 G/DL (30.0-36.0); MCV 86.1 FL (83-99); MONOCYTE (%) 2.2 % (3-12); MONOCYTE COUNT 0.4 K/uL (0-0.8); NEUTROPHIL (%) 91.1 % (45-76); NEUTROPHIL COUNT 16.8 K/uL (1.8-6.4); PLATELET COUNT 87 K/uL (156-360); RBC DIS.WIDTH-CV 16.3 % (11.8-14.6); RBC DIS.WIDTH-SD 51.4 % (39-53); RED BLOOD COUNT 3.17 M/uL (3.80-5.20); WHITE BLOOD COUNT 18.5 K/uL (4.1-10.2)
[2017-07-09 10:18] LABS: HIGH-SENS C-REACTIVE PROTEIN > 8.00 MG/DL (0.02-0.20)
[2017-07-09 12:02] VITALS: BP 131/77
[2017-07-09 15:58] LABS: Heparin Induced Plt Ab Negative (Negative)
[2017-07-09 20:02] VITALS: BP 111/58
[2017-07-10 00:02] VITALS: BP 136/72
[2017-07-10 04:02] VITALS: BP 114/55
[2017-07-10 05:36] LABS: BASOPHIL (%) 0.1 % (0-1); EOSINOPHIL (%) 1.5 % (0-5); EOSINOPHIL COUNT 0.2 K/uL (0-0.3); HEMATOCRIT 23.1 % (36.0-46.0); HEMOGLOBIN 7.4 G/DL (11.9-15.5); IMMATURE GRANULOCYTE (%) 0.8 % (0.0-0.7); LYMPHOCYTE (%) 5.8 % (15-42); LYMPHOCYTE COUNT 0.8 K/uL (1.0-2.8); MCH 28.5 PG (29.0-34.0); MCV 88.8 FL (83-99); MONOCYTE (%) 2.8 % (3-12); MONOCYTE COUNT 0.4 K/uL (0-0.8); NEUTROPHIL COUNT 12.9 K/uL (1.8-6.4); RBC DIS.WIDTH-CV 16.4 % (11.8-14.6); RBC DIS.WIDTH-SD 53.6 % (39-53); WHITE BLOOD COUNT 14.5 K/uL (4.1-10.2)
[2017-07-10 05:53] LABS: CHLORIDE 101 MEQ/L (99-109); CREATININE 2.6 MG/DL (0.6-1.3); GFR ESTIMATE (CALCULATED) 19 mL/min/; GLUCOSE 160 mg/dL (70-99); MAGNESIUM 2.3 mg/dl (1.3-2.7); PHOSPHORUS 2.6 mg/dL (2.5-4.9); SODIUM 137 MEQ/L (136-147); UREA NITROGEN (BUN) 42 mg/dL (9-23)
[2017-07-10 05:55] LABS: POTASSIUM 4.8 MEQ/L (3.7-5.4)
[2017-07-10 05:56] LABS: HIGH-SENS C-REACTIVE PROTEIN > 8.00 MG/DL (0.02-0.20)
[2017-07-10 06:39] LABS: PLAT.SUFFICIENCY DECREASED
[2017-07-10 06:57] LABS: PLATELET COUNT 52 K/uL (156-360)
[2017-07-10 08:02] VITALS: BP 113/62
[2017-07-10 17:12] LABS: BICARBONATE 29.5 mEq/L (22-26); CARBOXY HGB 1.9 % (0-5); COMMENTS - BLOOD GASES C+ANA; METHEMOGLOBIN 1.1 % (0-1.5); PCO2 37 mm Hg (35-45); PO2 89 mm Hg (80-100); SITE ALINE; pH 7.51 (7.35-7.45)
[2017-07-10 17:13] LABS: DEVICE PB VNET; FI02 30 %; MODE SPONT; PEEP 5 CM/H20; PRES. SUPPORT 10 CM/H2O; TOTAL RESP RATE 15 resp/min
[2017-07-10 20:02] VITALS: BP 104/65
[2017-07-11 00:02] VITALS: BP 111/52
[2017-07-11 02:00] VITALS: BP 127/60
[2017-07-12 09:40] LABS: UFH SRA Result Negative (Negative)
[2017-07-13 22:55] LABS: Heparin Induced Plt Ab Negative (Negative)
[2017-07-14 16:29] LABS: UFH SRA Result Negative (Negative)
== END 2017-07-11 04:05 | DRG 853 ==
LOC: EME 19:22 → EDOF 21:57 → 5EAST 21:57 → ENRESERV 22:01 → 5EAST 07-03 00:39 → ENRESERV 07-06 16:13 → 5EAST 07-06 16:14 → ENRESERV 07-06 16:21 → 4WEST 07-06 17:57
PROVIDERS: Family Medicine; Internal Medicine; Nurse Practitioner Family; Obstetrics & Gynecology; Physician Assistant; Thoracic Surgery (Cardiothoracic Vascular Surgery)
DX: A41.9 Sepsis, unspecified organism (principal); K56.2 Volvulus; K55.021 Focal (segmental) acute infarction of small intestine; R65.21 Severe sepsis with septic shock; N17.0 Acute kidney failure with tubular necrosis; J18.9 Pneumonia, unspecified organism; E43 Unspecified severe protein-calorie malnutrition; K56.52 Intestinal adhesions [bands] with complete obstruction; I48.1 Persistent atrial fibrillation; N25.81 Secondary hyperparathyroidism of renal origin; D69.6 Thrombocytopenia, unspecified; N18.4 Chronic kidney disease, stage 4 (severe); I48.91 Unspecified atrial fibrillation; J44.9 Chronic obstructive pulmonary disease, unspecified; E83.51 Hypocalcemia; I50.22 Chronic systolic (congestive) heart failure; E55.9 Vitamin D deficiency, unspecified; E03.9 Hypothyroidism, unspecified; I48.2 Chronic atrial fibrillation; N18.3 Chronic kidney disease, stage 3 (moderate); I25.10 Atherosclerotic heart disease of native coronary artery without angina pectoris; E78.5 Hyperlipidemia, unspecified; K59.00 Constipation, unspecified; F41.9 Anxiety disorder, unspecified; F32.9 Major depressive disorder, single episode, unspecified; H91.90 Unspecified hearing loss, unspecified ear; I13.0 Hypertensive heart and chronic kidney disease with heart failure and stage 1 through stage 4 chronic kidney disease, or unspecified chronic kidney disease; E87.2 Acidosis; Z51.5 Encounter for palliative care; K66.0 Peritoneal adhesions (postprocedural) (postinfection); N73.6 Female pelvic peritoneal adhesions (postinfective); E86.0 Dehydration; D63.1 Anemia in chronic kidney disease; K58.9 Irritable bowel syndrome, unspecified; Z66 Do not resuscitate; Z90.49 Acquired absence of other specified parts of digestive tract; E87.6 Hypokalemia; M81.0 Age-related osteoporosis without current pathological fracture; Z96.643 Presence of artificial hip joint, bilateral; Z79.01 Long term (current) use of anticoagulants; Z95.1 Presence of aortocoronary bypass graft; Z87.891 Personal history of nicotine dependence; Z90.710 Acquired absence of both cervix and uterus; Z85.3 Personal history of malignant neoplasm of breast; I25.2 Old myocardial infarction; J96.90 Respiratory failure, unspecified, unspecified whether with hypoxia or hypercapnia; Z95.5 Presence of coronary angioplasty implant and graft; F03.90 Unspecified dementia, unspecified severity, without behavioral disturbance, psychotic disturbance, mood disturbance, and anxiety; Z96.652 Presence of left artificial knee joint; Z82.0 Family history of epilepsy and other diseases of the nervous system
CPT/HCPCS: 31720; 36600; 71045; 71046; 74019; 74022; 74176; 76770; 80048; 80053; 80069; 81003; 82040; 82248; 82330; 82803; 82948; 83605; 83690; 83735; 83970; 84100; 84134; 84145 90; 84478; 84484; 84630 90; 85014; 85018; 85025; 85027; 85610; 85730; 86022 90; 86141; 86704; 86706; 86803; 86850; 86900; 86901; 86920; 87040; 87070; 87086; 87205; 87340; 87641; 88304; 88307; 93005; 94002; 94003; 94640; 94640 76; 94760; 94799; 99202; 99281; 99285; C1751; C1788; C9113; J0456; J0610; J0636; J0696; J1100; J1335; J1644; J1815; J1885; J1940; J2060; J2270; J2370; J2405; J2543; J2704; J2765; J3010; J3475; J3480; J7030; J7040; J7050; J7070; J7120; P9016; P9035; P9037; P9045; P9047; S0028; S0030